=== PATIENT | female | born 1935 | race Caucasian/White ===

== ENCOUNTER 2019-02-04 18:08 | Inpatient (IN) | payer MEDICARE ==
[~2019-02-04] VITALS: Ht 147.3 cm; Wt 51.7 kg
--- OUTSIDE RECORDS SUMMARY | 2019-02-04 18:12 | XMS REPORT | Clinical Summary ---
Author Author [facility] Organization [facility] Address Unknown Phone Unavailable Care Team Providers Care Office Automation Technician Name Role Phone Checo Goldenpardeep PCP Allergies Comments Active Allergy Reactions Severity Noted Date Lactose 01/10/2009 Methocarbamol 01/10/2009 Medications End Date Status Medication Sig Dispensed Refills Start Date Active gabapentin (NEURONTIN) Chew 100 mg 0 100 MG capsule by mouth 3 (three) times daily. Active aspirin 81 MG EC tablet Take 81 mg by 0 mouth daily. Active ibandronate (BONIVA) 150 Take 150 mg 0 mg tablet by mouth every 30 (thirty) days. Take in AM with glass of water prior to food, don't lie down for 30 minutes. Active ferrous sulfate 325 (65 Take 325 mg 0 FE) MG tablet by mouth daily. Active brimonidine (ALPHAGAN P) Place 0.1 0 0.1 % Drop drops into both eyes 2 (two) times daily. Active cyanocobalamin (VITAMIN Take 100 mcg 0 B-12) 1000 MCG tablet by mouth daily. Active multivitamin Take 1 tablet 0 (MULTIVITAMIN) per tablet by mouth daily. Active ascorbic acid (VITAMIN C) Take 1,000 mg 0 1000 MG tablet by mouth daily. Active montelukast (SINGULAIR) Take 10 mg by 0 10 mg tablet mouth nightly. Active bimatoprost (LUMIGAN) Place 1 drop 0 0.03 % ophthalmic drops into the left eye nightly. Active simethicone (MYLICON) 125 Take 125 mg 0 MG chewable tablet by mouth every 6 (six) hours as needed. Active guaiFENesin (MUCINEX) 600 Take 600 mg 0 mg 12 hr tablet by mouth daily. Active fluticasone (FLONASE) 50 1 spray by 0 mcg/actuation nasal Nasal route sprayIndications: Hx of daily. artificial heart valve replacement, HTN (hypertension), Hyperlipemia, CHF (congestive heart failure) (HCC), Asthma, Cardiac dysrhythmia, Acquired hypothyroidism, SOB (shortness of breath) Active penicillin v potassium Take 1 tablet 4 tablet 4 (VEETID) 500 MG tablet (500 mg 5 total) by mouth as needed for up to 2 doses 3 tabs one hrs prior to the procedure and 1 tab 3 hrs after.. Active ezetimibe (ZETIA) 10 mg Take 10 mg by 0 tablet mouth daily. Active simvastatin (ZOCOR) 20 MG Take 20 mg by 0 tablet mouth nightly. Active furosemide (LASIX) 20 MG Take 1 tablet 180 tablet 3 tablet (20 mg total) 7 by mouth 2 (two) times daily Take with 40 mg in am and pm. . Active pantoprazole (PROTONIX) TAKE 1 TABLET 90 tablet 3 40 MG tablet BY MOUTH 8 DAILY Active potassium chloride SA Take 1 tablet 360 tablet 5 (K-DUR,KLOR-CON) 20 MEQ (20 mEq 8 tablet total) by mouth 4 (four) times daily. Active levothyroxine (SYNTHROID, Take 1 tablet 90 tablet 5 LEVOTHROID) 25 MCG tablet (25 mcg 8 total) by mouth daily. 10/28/2019 Active furosemide (LASIX) 40 MG Take 1 tablet 180 tablet 3 tablet (40 mg total) 8 by mouth 2 (two) times daily Take 60 mg in am and 40 mg noon.. Active metoprolol (TOPROL-XL) 25 Take 1 tablet 180 tablet 3 MG 24 hr tablet (25 mg total) 8 by mouth 2 (two) times daily. 10/27/2018 Discontinued desloratadine (CLARINEX) Take 5 mg by 0 5 mg tablet mouth daily. 10/27/2018 Discontinued ezetimibe-simvastatin Take 1 tablet 0 (VYTORIN) 10-20 mg per by mouth tablet nightly. 02/17/2018 Discontinued pantoprazole (PROTONIX) Take 1 tablet 90 tablet 5 40 MG tablet by mouth 7 daily 05/21/2018 Discontinued potassium chloride SA Take 1 tablet 360 tablet 5 (K-DUR,KLOR-CON) 20 MEQ by mouth 4 7 tablet times daily 08/05/2018 Discontinued levothyroxine (SYNTHROID, Take 1 tablet 90 tablet 5 LEVOTHROID) 25 MCG tablet by mouth 7 daily 10/27/2018 Discontinued metoprolol (TOPROL-XL) 25 Take 1 tablet 180 tablet 3 MG 24 hr tablet (25 mg total) 8 by mouth 2 (two) times daily. 10/27/2018 Discontinued furosemide (LASIX) 40 MG Take 1 tablet 180 tablet 3 tablet (40 mg total) 8 by mouth 2 (two) times daily Take 60 mg in am and 40 mg noon.. Active Problems Problem Noted Date Other hyperlipidemia 12/25/2017 Supraventricular tachycardia 08/01/2017 Essential hypertension with goal blood pressure less than 140/90 09/05/2016 Hx of artificial heart valve replacement 03/05/2013 CHF (congestive heart failure) 03/05/2013 Asthma 03/05/2013 Cardiac dysrhythmia 03/05/2013 Acquired hypothyroidism 03/05/2013 Disease of tricuspid valve 03/05/2013 Osteoporosis 03/05/2013 Pleural effusion, right 03/05/2013 GERD (gastroesophageal reflux disease) 03/05/2013 Encounters Care Team Description Date Type Specialty Cyrus Berman MD Hx of artificial heart valve replacement (Primary Dx); Essential hypertension with goal blood pressure less than 140/90; Supraventricular tachycardia (HCC); Other hyperlipidemia 10/27/2018 Office Visit Cardiology 10/27/2018 Orders Only General Internal Medicine Cyrus Berman MD 10/27/2018 Refill Cardiology Cyrus Berman MD 08/05/2018 Refill Cardiology Cyrus Berman MD Disease of tricuspid valve (Primary Dx); Essential hypertension with goal blood pressure less than 140/90; Supraventricular tachycardia (HCC); Other hyperlipidemia 05/29/2018 Office Visit Cardiology 05/29/2018 Orders Only General Internal Medicine Cyrus Berman MD 05/21/2018 Refill Cardiology Cyrus Berman MD 02/17/2018 Refill Cardiology after 02/03/2018 Family History Relation Name Status Comments Father Mother Social History Date Tobacco Use Types Packs/Day Years Used Never Smoker Smokeless Tobacco: Never Used Alcohol Use Drinks/Week oz/Week Comments No Sex Assigned at Date Recorded Not on file Industry Job Start Date Occupation Not on file Not on file Not on file Travel End Travel History Travel Start No recent travel history available. Last Filed Vital Signs Time Taken Vital Sign Reading 10/27/2018 8:21 AM [employer] Blood Pressure 149/72 10/27/2018 8:11 AM [employer] Pulse 66 10/27/2018 8:11 AM [employer] Temperature 35.9 C (96.6 F) 10/27/2018 8:11 AM [employer] Respiratory Rate 18 10/27/2018 8:11 AM [employer] Oxygen Saturation 100% - Inhaled Oxygen - Concentration 10/27/2018 8:11 AM [employer] Weight 54.4 kg (120 lb) 10/27/2018 8:11 AM [employer] Height 147.3 cm (4' 10") 10/27/2018 8:11 AM [employer] Body Mass Index 25.08 Plan of Treatment Care Team Description Date Type Specialty Cyrus Berman MD [address] [facility] [address] [place], [place] [id number] 03/02/2019 Office Visit Cardiology Health Maintenance Due Date Last Done Comments INFLUENZA VACCINE 08/24/2018 Procedures Comments Procedure Name Priority Date/Time Associated Diagnosis ECG 12-LEAD Routine 10/27/2018 9:15 AM [employer] Procedure Note - Interface, External Ris In - 10/27/2018 10:23 AM [employer] Ventricula r Rate 67 BPM Atrial Rate 67 BPM P-R Interval 134 ms QRS Duration 80 ms Q-T Interval 442 ms QTC Calculatio n(Bazett) 467 ms P Crawford 29 degrees R Crawford 21 degrees T Crawford 61 degrees Sinus rhythm with marked sinus arrhythmia Otherwise normal ECG When compared with ECG of 8 08:03, No significan t change was found ECG 12-LEAD Routine 10/27/2018 Essential hypertension 9:15 AM [employer] with goal blood pressure less than 140/90 Supraventricular tachycardia (HCC) CBC W/PLT COUNT & AUTO Routine 10/27/2018 Supraventricular DIFFERENTIAL 8:16 AM [employer] tachycardia (HCC) B-TYPE NATRIURETIC FACTOR Routine 10/27/2018 Essential hypertension (BNP) 8:16 AM [employer] with goal blood pressure less than 140/90 Supraventricular tachycardia (HCC) TSH Routine 10/27/2018 Essential hypertension 8:16 AM [employer] with goal blood pressure less than 140/90 Supraventricular tachycardia (HCC) HEPATIC FUNCTION PANEL Routine 10/27/2018 Essential hypertension 8:16 AM [employer] with goal blood pressure less than 140/90 Supraventricular tachycardia (HCC) Other hyperlipidemia LIPID PANEL Routine 10/27/2018 Essential hypertension 8:16 AM [employer] with goal blood pressure less than 140/90 Supraventricular tachycardia (HCC) Other hyperlipidemia CBC W/PLT COUNT & AUTO Routine 10/27/2018 Supraventricular DIFFERENTIAL 8:16 AM [employer] tachycardia (HCC) BASIC METABOLIC PANEL (7) Routine 10/27/2018 Other hyperlipidemia 8:16 AM [employer] CBC W/PLT COUNT & AUTO Routine 05/29/2018 Disease of tricuspid DIFFERENTIAL 8:04 AM CDT valve Essential hypertension with goal blood pressure less than 140/90 Supraventricular tachycardia (HCC) Other hyperlipidemia B-TYPE NATRIURETIC FACTOR STAT 05/29/2018 Disease of tricuspid (BNP) 8:04 AM CDT valve Essential hypertension with goal blood pressure less than 140/90 Supraventricular tachycardia (HCC) Other hyperlipidemia TSH Routine 05/29/2018 Disease of tricuspid 8:04 AM CDT valve Essential hypertension with goal blood pressure less than 140/90 Supraventricular tachycardia (HCC) Other hyperlipidemia HEPATIC FUNCTION PANEL Routine 05/29/2018 Disease of tricuspid 8:04 AM CDT valve Essential hypertension with goal blood pressure less than 140/90 Supraventricular tachycardia (HCC) Other hyperlipidemia LIPID PANEL Routine 05/29/2018 Disease of tricuspid 8:04 AM CDT valve Essential hypertension with goal blood pressure less than 140/90 Supraventricular tachycardia (HCC) Other hyperlipidemia COMPREHENSIVE METABOLIC Routine 05/29/2018 Disease of tricuspid PANEL 8:04 AM CDT valve Essential hypertension with goal blood pressure less than 140/90 Supraventricular tachycardia (HCC) Other hyperlipidemia CBC W/PLT COUNT & AUTO Routine 05/29/2018 Disease of tricuspid DIFFERENTIAL 8:04 AM CDT valve Essential hypertension with goal blood pressure less than 140/90 Supraventricular tachycardia (HCC) Other hyperlipidemia BASIC METABOLIC PANEL (7) Routine 05/29/2018 Disease of tricuspid 8:04 AM CDT valve Essential hypertension with goal blood pressure less than 140/90 Supraventricular tachycardia (HCC) Other hyperlipidemia ECG 12-LEAD Routine 05/29/2018 8:03 AM CDT ECG 12-LEAD Routine 05/29/2018 8:03 AM CDT Procedure Note - Interface, External Ris In - 05/29/2018 11:07 AM CDT Ventricula r Rate 57 BPM Atrial Rate 57 BPM P-R Interval 166 ms QRS Duration 80 ms Q-T Interval 450 ms QTC Calculatio n(Bazett) 438 ms P Crawford 6 degrees R Crawford 18 degrees T Crawford 45 degrees Sinus bradycardi a Otherwise normal ECG When compared with ECG of 8 08:55, No significan t change was found after 02/03/2018 Results * ECG 12 lead (10/27/2018 9:15 AM [employer]) Only the most recent of 2 results within the time period is included. Narrative Performed At Ventricular Rate 67 BPM [facility] Atrial Rate 67 BPM P-R Interval 134 ms QRS Duration 80 ms Q-T Interval 442 ms QTC Calculation(Bazett) 467 ms P Crawford 29 degrees R Crawford 21 degrees T Crawford 61 degrees Sinus rhythm Atrial premature beats Nonspecific ST and T wave abnormality Otherwise normal ECG When compared with ECG of 29-MAY-2018 08:03, No significant change was found Confirmed by MD BERMAN JAMES T ([id number]) on 10/28/2018 2:00:04 PM Procedure Note Interface, External Ris In - 10/28/2018 2:00 PM [employer] Ventricular Rate 67 BPM Atrial Rate 67 BPM P-R Interval 134 ms QRS Duration 80 ms Q-T Interval 442 ms QTC Calculation(Bazett) 467 ms P Crawford 29 degrees R Crawford 21 degrees T Crawford 61 degrees Sinus rhythm Atrial premature beats Nonspecific ST and T wave abnormality Otherwise normal ECG When compared with ECG of 29-MAY-2018 08:03, No significant change was found Confirmed by MD BERMAN JAMES T ([id number]) on 10/28/2018 2:00:04 PM Performing Organization Address City/State/Zipcode Phone Number [facility] * CBC with platelet count + automated diff (10/27/2018 8:16 AM [employer]) Only the most recent of 2 results within the time period is included. WBC 5.3 3.5 - 10.5 K/L [facility] RBC 3.69 (L) 3.93 - 5.22 M/L [facility] Hemoglobin 11.9 11.2 - 15.7 GM/DL [facility] Hematocrit 37.2 34.1 - 44.9 % [facility] MCV 100.8 (H) 79.4 - 94.8 fL [facility] MCH 32.2 25.6 - 32.2 pg [facility] MCHC 32.0 (L) 32.2 - 35.5 GM/DL [facility] RDW 12.1 11.7 - 14.4 % [facility] Platelets 308 150 - 450 K/CU MM [facility] MPV 9.0 (L) 9.4 - 12.3 fL [facility] nRBC 0 0 - 0 /100 WBC [facility] % Neutros 68 % [facility] % Lymphs 19 % [facility] % Monos 9 % [facility] % Eos 3 % [facility] % Baso 1 % [facility] # Neutros 3.60 1.56 - 6.13 K/L [facility] # Lymphs 0.98 (L) 1.18 - 3.74 K/L [facility] # Monos 0.47 (H) 0.24 - 0.36 K/L [facility] # Eos 0.18 0.04 - 0.36 K/L [facility] # Baso 0.05 0.01 - 0.08 K/L [facility] Immature 0 0 - 1 % [facility] Granulocytes-Relative [facility] Specimen Blood Performing Organization Address City/[facility]/[place]code [place] [address] [phone] * TSH (10/27/2018 8:16 AM [employer] FINISH[employer]) Only the most recent of 2 results within the time period is included. TSH 3.16 0.35 - 4.94 uIU/mL [facility] Specimen Blood Performing Organization Address City/[facility] Phone Number [place] [phone] * B-type Natriuretic Factor (BNP) (10/27/2018 8:16 AM [employer]) Only the most recent of 2 results within the time period is included. BNP 364 (H) 0 - 100 pg/mL [facility] Specimen Blood Performing Organization Address City/[facility] Phone Number [address] * Liver Function Panel (10/27/2018 8:16 AM [employer] FIN[employer]) Only the most recent of 2 results within the time period is included. Protein, Total 7.0 6.0 - 8.3 gm/dL [facility] Albumin 4.1 3.5 - 5.0 g/dL [facility] Total Bilirubin 0.7 0.2 - 1.2 mg/dL [facility] Bilirubin, Direct 0.4 0.1 - 0.5 mg/dL [facility] Alkaline Phosphatase 185 (H) 40 - 150 U/L [facility] AST 29 5 - 34 U/L [facility] ALT 27 6 - 55 U/L [facility] Specimen Blood Performing Organization Address City/[facility] Phone Number [facility] [address] [place] [address] [facility] * Lipid Panel (10/27/2018 8:16 AM [employer] FIN[employer]) Only the most recent of 2 results within the time period is included. Triglycerides 83 mg/dL [facility] Cholesterol 155 mg/dL [facility] HDL 62 mg/dL [facility] LDL Calculated 76 mg/dL [facility] Specimen Blood Narrative Performed At Triglyceride Reference Range: [facility] Low Risk <150 [facility] [id number] High Risk 200-499 Very High Risk>=500 Cholesterol Reference Range: Low Risk <200 [id number] High Risk>240 HDL Cholesterol Reference Range: Low Risk >=60 High Risk <40 LDL Cholesterol Reference Range: Optimal<100 Near [id number] Very High >=190 Performing Organization Address City/[facility] Phone Number [facility] [address] [place] [address] [facility] * Basic Metabolic Panel (10/27/2018 8:16 AM H[employer] FINISH[employer]) Only the most recent of 2 results within the time period is included. Sodium 138 136 - 145 meq/L [facility] Potassium 3.6 3.5 - 5.1 meq/L [facility] Chloride 100 98 - 107 meq/L [facility] CO2 32 (H) 22 - 29 meq/L [facility] BUN 15 7 - 21 mg/dL [facility] Creatinine 0.79 0.57 - 1.25 mg/dL [facility] Glucose 91 70 - 105 mg/dL [facility] Calcium 9.4 8.4 - 10.2 mg/dL [facility] EGFR 70Comment: ESTIMATED GFR IS mL/min/1.73 sq m [facility] NOT ACCURATE CREATININE [facility] CLEARANCE IN PREDICTING GLOMERULAR FILTRATION RATE. ESTIMATED GFR IS NOT APPLICABLE FOR DIALYSIS PATIENTS. Specimen Blood Performing Organization Address City/State/Zipcode Phone Number [facility] [address] [place] [address] [facility] * Comprehensive Metabolic Panel (05/29/2018 8:04 AM CDT) Protein, Total 6.5 6.0 - 8.3 gm/dL [facility] Albumin 3.9 3.5 - 5.0 g/dL [facility] Alkaline Phosphatase 77 40 - 150 U/L [facility] Total Bilirubin 0.8 0.2 - 1.2 mg/dL [facility] Sodium 136 136 - 145 meq/L [facility] Potassium 4.1 3.5 - 5.1 meq/L [facility] Chloride 99 98 - 107 meq/L [facility] CO2 32 (H) 22 - 29 meq/L [facility] BUN 15 7 - 21 mg/dL [facility] Creatinine 0.90 0.57 - 1.25 mg/dL [facility] Glucose 92 70 - 105 mg/dL [facility] Calcium 9.4 8.4 - 10.2 mg/dL [facility] AST 23 5 - 34 U/L [facility] ALT 15 6 - 55 U/L [facility] EGFR 60Comment: ESTIMATED GFR IS mL/min/1.73 sq m [facility] NOT ACCURATE CREATININE [facility] CLEARANCE IN PREDICTING GLOMERULAR FILTRATION RATE. ESTIMATED GFR IS NOT APPLICABLE FOR DIALYSIS PATIENTS. Specimen Blood Performing Organization Address City/State/Zipcode Phone Number [facility] [address] [place] [address] [facility] after 02/03/2018 Insurance Payer Benefit Subscriber ID Type Phone Address Plan / Group MEDICARE MEDICARE A xxxxxxxxxxx Medicare B MCR SUPPLEMENT/INDIVIDUAL AARP/UNITE xxxxxxxxxxx [facility]
--- OUTSIDE RECORDS SUMMARY | 2019-02-04 18:12 | XMS REPORT ---
Author Author [facility] Address Unknown Phone Unavailable Care Team Providers Care Reading Professor Name Role Phone Mark BERMAN Unavailable Unavailable Problems This patient has no known problems. Allergies, Adverse Reactions, Alerts This patient has no known allergies or adverse reactions. Medications This patient has no known medications. Results Test Description Test Time Test Comments Text Results Atomic Results Result Comments TSH 2018-10-27 09:18:00 THYROID STIMULATING HORMONE (BEAKER) (test zzdj=056) 3.16 uIU/mL 0.35-4.94 B-TYPE NATRIURETIC FACTOR (BNP)2018-10-27 08:49:00* Test Item Value Reference Range Comments B-TYPE NATRIURETIC PEPTIDE (BEAKER) (test tgqp=501) 364 pg/mL 0-100 LIPID [id number] 08:42:00* Test Item Value Reference Range Comments TRIGLYCERIDES (BEAKER) (test cymq=004) 83 mg/dL CHOLESTEROL (BEAKER) (test kljg=380) 155 mg/dL HDL CHOLESTEROL (BEAKER) (test msir=164) 62 mg/dL LDL CHOLESTEROL CALCULATED (BEAKER) (test aluf=729) 76 mg/dL Triglyceride Reference Range: Low Risk <150 Borderline 150-199 High Risk 200-499 Very High Risk >=500Cholesterol Reference Range: Low Risk <200 Borderline 200-239 High Risk >240HDL Cholesterol Reference Range: Low Risk >=60 High Risk <40LDL Cholesterol Reference Range: Optimal <100 Near Optimal 100-129 Borderline 130-159 High 160-189 Very High >=190 BASIC METABOLIC [id number] 08:42:00* Test Item Value Reference Range Comments SODIUM (BEAKER) (test ctzy=357) 138 meq/L 136-145 POTASSIUM (BEAKER) (test guhu=859) 3.6 meq/L 3.5-5.1 CHLORIDE (BEAKER) (test gyjr=959) 100 meq/L 98-107 CO2 (BEAKER) (test yjri=350) 32 meq/L 22-29 BLOOD UREA NITROGEN (BEAKER) (test oohj=789) 15 mg/dL 7-21 CREATININE (BEAKER) (test vwid=620) 0.79 mg/dL 0.57-1.25 GLUCOSE RANDOM (BEAKER) (test xeex=178) 91 mg/dL 70-105 CALCIUM (BEAKER) (test bgfr=585) 9.4 mg/dL 8.4-10.2 EGFR (BEAKER) (test xvsm=4943) 70 mL/min/1.73 sq m ESTIMATED GFR IS NOT ACCURATE CREATININE CLEARANCE IN PREDICTING GLOMERULAR FILTRATION RATE. ESTIMATED GFR IS NOT APPLICABLE FOR DIALYSIS PATIENTS. HEPATIC FUNCTION [id number] 08:42:00* Test Item Value Reference Range Comments TOTAL PROTEIN (BEAKER) (test dkwf=023) 7.0 gm/dL 6.0-8.3 ALBUMIN (BEAKER) (test ezpz=6946) 4.1 g/dL 3.5-5.0 BILIRUBIN TOTAL (BEAKER) (test runa=390) 0.7 mg/dL 0.2-1.2 BILIRUBIN DIRECT (BEAKER) (test whjs=882) 0.4 mg/dL 0.1-0.5 ALKALINE PHOSPHATASE (BEAKER) (test dwap=657) 185 U/L 40-150 AST (SGOT) (BEAKER) (test nvcz=947) 29 U/L 5-34 ALT (SGPT) (BEAKER) (test igbd=663) 27 U/L 6-55 CBC W/PLT COUNT & AUTO [id number] 08:20:00* Test Item Value Reference Range Comments WHITE BLOOD CELL COUNT (BEAKER) (test aufw=156) 5.3 K/ L 3.5-10.5 RED BLOOD CELL COUNT (BEAKER) (test itxd=424) 3.69 M/ L 3.93-5.22 HEMOGLOBIN (BEAKER) (test xybk=334) 11.9 GM/DL 11.2-15.7 HEMATOCRIT (BEAKER) (test rhqi=507) 37.2 % 34.1-44.9 MEAN CORPUSCULAR VOLUME (BEAKER) (test nyho=675) 100.8 fL 79.4-94.8 MEAN CORPUSCULAR HEMOGLOBIN (BEAKER) (test yhqf=175) 32.2 pg 25.6-32.2 MEAN CORPUSCULAR HEMOGLOBIN CONC (BEAKER) (test kaka=444) 32.0 GM/DL 32.2-35.5 RED CELL DISTRIBUTION WIDTH (BEAKER) (test pimy=438) 12.1 % 11.7-14.4 PLATELET COUNT (BEAKER) (test valq=090) 308 K/CU MM 150-450 MEAN PLATELET VOLUME (BEAKER) (test yntj=428) 9.0 fL 9.4-12.3 NUCLEATED RED BLOOD CELLS (BEAKER) (test qbov=161) 0 /100 WBC 0-0 NEUTROPHILS RELATIVE PERCENT (BEAKER) (test tcdk=242) 68 % LYMPHOCYTES RELATIVE PERCENT (BEAKER) (test cbmn=110) 19 % MONOCYTES RELATIVE PERCENT (BEAKER) (test hhet=934) 9 % EOSINOPHILS RELATIVE PERCENT (BEAKER) (test vxhe=919) 3 % BASOPHILS RELATIVE PERCENT (BEAKER) (test uvtl=927) 1 % NEUTROPHILS ABSOLUTE COUNT (BEAKER) (test rpld=580) 3.60 K/ L 1.56-6.13 LYMPHOCYTES ABSOLUTE COUNT (BEAKER) (test jzfa=722) 0.98 K/ L 1.18-3.74 MONOCYTES ABSOLUTE COUNT (BEAKER) (test twif=598) 0.47 K/ L 0.24-0.36 EOSINOPHILS ABSOLUTE COUNT (BEAKER) (test xjas=683) 0.18 K/ L 0.04-0.36 BASOPHILS ABSOLUTE COUNT (BEAKER) (test tlcp=798) 0.05 K/ L 0.01-0.08 IMMATURE GRANULOCYTES-RELATIVE PERCENT (BEAKER) (test qsyh=7032) 0 % 0-1 LIPID [id number] 09:16:00* Test Item Value Reference Range Comments TRIGLYCERIDES (BEAKER) (test lagv=082) 90 mg/dL CHOLESTEROL (BEAKER) (test klla=585) 171 mg/dL HDL CHOLESTEROL (BEAKER) (test ckfs=530) 62 mg/dL LDL CHOLESTEROL CALCULATED (BEAKER) (test jimr=495) 91 mg/dL Triglyceride Reference Range: Low Risk <150 Borderline 150-199 High Risk 200-499 Very High Risk >=500Cholesterol Reference Range: Low Risk <200 Borderline 200-239 High Risk >240HDL Cholesterol Reference Range: Low Risk >=60 High Risk <40LDL Cholesterol Reference Range: Optimal <100 Near Optimal 100-129 Borderline 130-159 High 160-189 Very High >=190 TSH 2018-05-29 08:50:00* Test Item Value Reference Range Comments THYROID STIMULATING HORMONE (BEAKER) (test cobt=470) 2.62 uIU/mL 0.35-4.94 B-TYPE NATRIURETIC FACTOR (BNP)2018-05-29 08:36:00* Test Item Value Reference Range Comments B-TYPE NATRIURETIC PEPTIDE (BEAKER) (test hgah=828) 327 pg/mL 0-100 BASIC METABOLIC [id number] 08:30:00* Test Item Value Reference Range Comments SODIUM (BEAKER) (test bvfb=136) 136 meq/L 136-145 POTASSIUM (BEAKER) (test kwwx=566) 4.1 meq/L 3.5-5.1 CHLORIDE (BEAKER) (test mhix=335) 99 meq/L 98-107 CO2 (BEAKER) (test dwmc=033) 32 meq/L 22-29 BLOOD UREA NITROGEN (BEAKER) (test rrkw=705) 15 mg/dL 7-21 CREATININE (BEAKER) (test gvrx=875) 0.90 mg/dL 0.57-1.25 GLUCOSE RANDOM (BEAKER) (test easn=412) 92 mg/dL 70-105 CALCIUM (BEAKER) (test nacj=509) 9.4 mg/dL 8.4-10.2 EGFR (BEAKER) (test uriq=8896) 60 mL/min/1.73 sq m ESTIMATED GFR IS NOT ACCURATE CREATININE CLEARANCE IN PREDICTING GLOMERULAR FILTRATION RATE. ESTIMATED GFR IS NOT APPLICABLE FOR DIALYSIS PATIENTS. HEPATIC FUNCTION [id number] 08:30:00* Test Item Value Reference Range Comments TOTAL PROTEIN (BEAKER) (test wzir=485) 6.5 gm/dL 6.0-8.3 ALBUMIN (BEAKER) (test mnvb=6667) 3.9 g/dL 3.5-5.0 BILIRUBIN TOTAL (BEAKER) (test xzpp=549) 0.8 mg/dL 0.2-1.2 BILIRUBIN DIRECT (BEAKER) (test mngz=256) 0.3 mg/dL 0.1-0.5 ALKALINE PHOSPHATASE (BEAKER) (test pbkp=190) 77 U/L 40-150 AST (SGOT) (BEAKER) (test xakr=830) 23 U/L 5-34 ALT (SGPT) (BEAKER) (test zxlp=815) 15 U/L 6-55 COMPREHENSIVE METABOLIC [id number] 08:30:00* Test Item Value Reference Range Comments TOTAL PROTEIN (BEAKER) (test akvi=034) 6.5 gm/dL 6.0-8.3 ALBUMIN (BEAKER) (test vcfi=1775) 3.9 g/dL 3.5-5.0 ALKALINE PHOSPHATASE (BEAKER) (test urba=625) 77 U/L 40-150 BILIRUBIN TOTAL (BEAKER) (test bbyx=253) 0.8 mg/dL 0.2-1.2 SODIUM (BEAKER) (test ofvq=232) 136 meq/L 136-145 POTASSIUM (BEAKER) (test okxs=702) 4.1 meq/L 3.5-5.1 CHLORIDE (BEAKER) (test utxh=067) 99 meq/L 98-107 CO2 (BEAKER) (test voca=563) 32 meq/L 22-29 BLOOD UREA NITROGEN (BEAKER) (test zwhc=291) 15 mg/dL 7-21 CREATININE (BEAKER) (test mouf=907) 0.90 mg/dL 0.57-1.25 GLUCOSE RANDOM (BEAKER) (test pbwq=590) 92 mg/dL 70-105 CALCIUM (BEAKER) (test hoxc=237) 9.4 mg/dL 8.4-10.2 AST (SGOT) (BEAKER) (test hisr=710) 23 U/L 5-34 ALT (SGPT) (BEAKER) (test urrw=745) 15 U/L 6-55 EGFR (BEAKER) (test firr=5716) 60 mL/min/1.73 sq m ESTIMATED GFR IS NOT ACCURATE CREATININE CLEARANCE IN PREDICTING GLOMERULAR FILTRATION RATE. ESTIMATED GFR IS NOT APPLICABLE FOR DIALYSIS PATIENTS. CBC W/PLT COUNT & AUTO [id number] 08:15:00* Test Item Value Reference Range Comments WHITE BLOOD CELL COUNT (BEAKER) (test uqol=323) 4.1 K/ L 3.5-10.5 RED BLOOD CELL COUNT (BEAKER) (test ckdy=492) 3.56 M/ L 3.93-5.22 HEMOGLOBIN (BEAKER) (test gomu=403) 11.7 GM/DL 11.2-15.7 HEMATOCRIT (BEAKER) (test wvfp=964) 35.7 % 34.1-44.9 MEAN CORPUSCULAR VOLUME (BEAKER) (test rtih=201) 100.3 fL 79.4-94.8 MEAN CORPUSCULAR HEMOGLOBIN (BEAKER) (test ktzs=916) 32.9 pg 25.6-32.2 MEAN CORPUSCULAR HEMOGLOBIN CONC (BEAKER) (test mqom=431) 32.8 GM/DL 32.2-35.5 RED CELL DISTRIBUTION WIDTH (BEAKER) (test qgqh=142) 12.7 % 11.7-14.4 PLATELET COUNT (BEAKER) (test zzfk=634) 235 K/CU MM 150-450 MEAN PLATELET VOLUME (BEAKER) (test opzo=907) 9.4 fL 9.4-12.3 NUCLEATED RED BLOOD CELLS (BEAKER) (test snqo=123) 0 /100 WBC 0-0 NEUTROPHILS RELATIVE PERCENT (BEAKER) (test bilb=437) 64 % LYMPHOCYTES RELATIVE PERCENT (BEAKER) (test ehxx=393) 22 % MONOCYTES RELATIVE PERCENT (BEAKER) (test puql=856) 10 % EOSINOPHILS RELATIVE PERCENT (BEAKER) (test cuje=807) 3 % BASOPHILS RELATIVE PERCENT (BEAKER) (test oruu=722) 1 % NEUTROPHILS ABSOLUTE COUNT (BEAKER) (test tues=983) 2.63 K/ L 1.56-6.13 LYMPHOCYTES ABSOLUTE COUNT (BEAKER) (test vzkr=344) 0.88 K/ L 1.18-3.74 MONOCYTES ABSOLUTE COUNT (BEAKER) (test axjn=161) 0.39 K/ L 0.24-0.36 EOSINOPHILS ABSOLUTE COUNT (BEAKER) (test ucja=483) 0.13 K/ L 0.04-0.36 BASOPHILS ABSOLUTE COUNT (BEAKER) (test hwhg=635) 0.04 K/ L 0.01-0.08 IMMATURE GRANULOCYTES-RELATIVE PERCENT (BEAKER) (test rjly=7917) 0 % 0-1 [id number] 09:02:00* Test Item Value Reference Range Comments THYROID STIMULATING HORMONE (BEAKER) (test gxxi=714) 2.85 uIU/mL 0.35-4.94 RAD, CHEST, 2 [id number] 08:35:00Reason for Exam:->CADFINAL REPORT Chest two views 12/31/2017 8:34 AM CLINICAL INDICATION: CAD COMPARISON: 09/09/2016 IMPRESSION: There has been no significant interval change when compared to the previous examination. There is unchanged pleural parenchymal opacity in the right lung and hemithorax, suggesting a combination of small volume pleural fluid and atelectasis. There is a trace left pleural effusion, with adjacent basilar atelectasis or scarring. Cardiomediastinal cont ours are within normal limits. The central pulmonary vasculature is not engorged . Sternotomy wires remain midline. There is kyphoscoliosis in the thoracolumbar spine. Signed: Griffin Mc Verified Date/Time: 12/31/2017 08:35:51 Reading Location: [facility] Radiology Reading Room D [id number] 08:34:00 * Test Item Value Reference Range Comments TRIGLYCERIDES (BEAKER) (test qubi=263) 95 mg/dL CHOLESTEROL (BEAKER) (test rjhw=894) 162 mg/dL HDL CHOLESTEROL (BEAKER) (test kebc=393) 64 mg/dL LDL CHOLESTEROL CALCULATED (BEAKER) (test bqfv=994) 79 mg/dL Triglyceride Reference Range: Low Risk <150 Borderline 150-199 High Risk 200-499 Very High Risk >=500Cholesterol Reference Range: Low Risk <200 Borderline 200-239 High Risk >240HDL Cholesterol Reference Range: Low Risk >=60 High Risk <40LDL Cholesterol Reference Range: Optimal <100 Near Optimal 100-129 Borderline 130-159 High 160-189 Very High >=190 BASIC METABOLIC [id number] 08:34:00* Test Item Value Reference Range Comments SODIUM (BEAKER) (test rtaw=756) 138 meq/L 136-145 POTASSIUM (BEAKER) (test yvsa=482) 3.6 meq/L 3.5-5.1 CHLORIDE (BEAKER) (test zegj=157) 99 meq/L 98-107 CO2 (BEAKER) (test ysmq=757) 31 meq/L 22-29 BLOOD UREA NITROGEN (BEAKER) (test bocm=756) 15 mg/dL 7-21 CREATININE (BEAKER) (test mfzr=798) 0.84 mg/dL 0.57-1.25 GLUCOSE RANDOM (BEAKER) (test brkg=015) 87 mg/dL 70-105 CALCIUM (BEAKER) (test xssx=451) 9.3 mg/dL 8.4-10.2 EGFR (BEAKER) (test elhp=6427) 65 mL/min/1.73 sq m ESTIMATED GFR IS NOT ACCURATE CREATININE CLEARANCE IN PREDICTING GLOMERULAR FILTRATION RATE. ESTIMATED GFR IS NOT APPLICABLE FOR DIALYSIS PATIENTS. HEPATIC FUNCTION [id number] 08:34:00* Test Item Value Reference Range Comments TOTAL PROTEIN (BEAKER) (test oxyn=004) 6.8 gm/dL 6.0-8.3 ALBUMIN (BEAKER) (test avtp=5263) 3.9 g/dL 3.5-5.0 BILIRUBIN TOTAL (BEAKER) (test kktn=828) 0.8 mg/dL 0.2-1.2 BILIRUBIN DIRECT (BEAKER) (test emfg=797) 0.4 mg/dL 0.1-0.5 ALKALINE PHOSPHATASE (BEAKER) (test bvuw=269) 75 U/L 40-150 AST (SGOT) (BEAKER) (test rhqz=104) 29 U/L 5-34 ALT (SGPT) (BEAKER) (test zuvw=558) 17 U/L 6-55 B-TYPE NATRIURETIC FACTOR (BNP)2017-12-31 08:30:00* Test Item Value Reference Range Comments B-TYPE NATRIURETIC PEPTIDE (BEAKER) (test mnka=045) 317 pg/mL 0-100 CBC W/PLT COUNT & AUTO [id number] 08:01:00* Test Item Value Reference Range Comments WHITE BLOOD CELL COUNT (BEAKER) (test wded=308) 5.3 K/ L 3.5-10.5 RED BLOOD CELL COUNT (BEAKER) (test sbmu=477) 3.58 M/ L 3.93-5.22 HEMOGLOBIN (BEAKER) (test kxxn=306) 11.8 GM/DL 11.2-15.7 HEMATOCRIT (BEAKER) (test xdye=094) 35.9 % 34.1-44.9 MEAN CORPUSCULAR VOLUME (BEAKER) (test awyi=926) 100.3 fL 79.4-94.8 MEAN CORPUSCULAR HEMOGLOBIN (BEAKER) (test ijhd=676) 33.0 pg 25.6-32.2 MEAN CORPUSCULAR HEMOGLOBIN CONC (BEAKER) (test zyqc=713) 32.9 GM/DL 32.2-35.5 RED CELL DISTRIBUTION WIDTH (BEAKER) (test cbmw=265) 12.4 % 11.7-14.4 PLATELET COUNT (BEAKER) (test lguw=037) 224 K/CU MM 150-450 MEAN PLATELET VOLUME (BEAKER) (test nefw=649) 9.3 fL 9.4-12.3 NUCLEATED RED BLOOD CELLS (BEAKER) (test sblw=287) 0 /100 WBC 0-0 NEUTROPHILS RELATIVE PERCENT (BEAKER) (test wuqc=611) 66 % LYMPHOCYTES RELATIVE PERCENT (BEAKER) (test mziz=872) 20 % MONOCYTES RELATIVE PERCENT (BEAKER) (test bjwj=086) 10 % EOSINOPHILS RELATIVE PERCENT (BEAKER) (test jlvh=144) 3 % BASOPHILS RELATIVE PERCENT (BEAKER) (test buny=003) 1 % NEUTROPHILS ABSOLUTE COUNT (BEAKER) (test xfor=412) 3.52 K/ L 1.56-6.13 LYMPHOCYTES ABSOLUTE COUNT (BEAKER) (test vlsl=543) 1.06 K/ L 1.18-3.74 MONOCYTES ABSOLUTE COUNT (BEAKER) (test diru=235) 0.52 K/ L 0.24-0.36 EOSINOPHILS ABSOLUTE COUNT (BEAKER) (test nnmk=554) 0.17 K/ L 0.04-0.36 BASOPHILS ABSOLUTE COUNT (BEAKER) (test kigi=553) 0.04 K/ L 0.01-0.08 IMMATURE GRANULOCYTES-RELATIVE PERCENT (BEAKER) (test qsta=2439) 0 % 0-1 [id number] 09:21:00* Test Item Value Reference Range Comments THYROID STIMULATING HORMONE (BEAKER) (test pkbt=470) 3.83 uIU/mL 0.35-4.94 B-TYPE NATRIURETIC FACTOR (BNP)2017-08-04 09:01:00* Test Item Value Reference Range Comments B-TYPE NATRIURETIC PEPTIDE (BEAKER) (test tvmk=313) 269 pg/mL 0-100 LIPID [id number] 08:55:00* Test Item Value Reference Range Comments TRIGLYCERIDES (BEAKER) (test uqwa=177) 95 mg/dL CHOLESTEROL (BEAKER) (test huul=021) 166 mg/dL HDL CHOLESTEROL (BEAKER) (test gntf=890) 62 mg/dL LDL CHOLESTEROL CALCULATED (BEAKER) (test wmro=836) 85 mg/dL Triglyceride Reference Range: Low Risk <150 Borderline 150-199 High Risk 200-499 Very High Risk >=500Cholesterol Reference Range: Low Risk <200 Borderline 200-239 High Risk >240HDL Cholesterol Reference Range: Low Risk >=60 High Risk <40LDL Cholesterol Reference Range: Optimal <100 Near Optimal 100-129 Borderline 130-159 High 160-189 Very High >=190 BASIC METABOLIC [id number] 08:55:00* Test Item Value Reference Range Comments SODIUM (BEAKER) (test hotl=185) 138 meq/L 136-145 POTASSIUM (BEAKER) (test tybt=532) 3.7 meq/L 3.5-5.1 CHLORIDE (BEAKER) (test powf=458) 100 meq/L 98-107 CO2 (BEAKER) (test zczm=795) 29 meq/L 22-29 BLOOD UREA NITROGEN (BEAKER) (test jsza=656) 18 mg/dL 7-21 CREATININE (BEAKER) (test guuz=775) 0.87 mg/dL 0.57-1.25 GLUCOSE RANDOM (BEAKER) (test eivy=515) 83 mg/dL 70-105 CALCIUM (BEAKER) (test jdbb=096) 9.3 mg/dL 8.4-10.2 EGFR (BEAKER) (test jcnc=5302) 62 mL/min/1.73 sq m ESTIMATED GFR IS NOT ACCURATE CREATININE CLEARANCE IN PREDICTING GLOMERULAR FILTRATION RATE. ESTIMATED GFR IS NOT APPLICABLE FOR DIALYSIS PATIENTS. HEPATIC FUNCTION [id number] 08:55:00* Test Item Value Reference Range Comments TOTAL PROTEIN (BEAKER) (test auoy=955) 6.7 gm/dL 6.0-8.3 ALBUMIN (BEAKER) (test lhyw=7610) 3.9 g/dL 3.5-5.0 BILIRUBIN TOTAL (BEAKER) (test eqys=202) 0.8 mg/dL 0.2-1.2 BILIRUBIN DIRECT (BEAKER) (test xxll=840) 0.3 mg/dL 0.1-0.5 ALKALINE PHOSPHATASE (BEAKER) (test ntaf=780) 81 U/L 40-150 AST (SGOT) (BEAKER) (test maks=734) 30 U/L 5-34 ALT (SGPT) (BEAKER) (test qqwd=365) 18 U/L 6-55 CBC W/PLT COUNT & AUTO [id number] 08:33:00* Test Item Value Reference Range Comments WHITE BLOOD CELL COUNT (BEAKER) (test uegp=891) 4.6 K/ L 3.5-10.5 RED BLOOD CELL COUNT (BEAKER) (test zzfo=754) 3.68 M/ L 3.93-5.22 HEMOGLOBIN (BEAKER) (test lslv=038) 12.0 GM/DL 11.2-15.7 HEMATOCRIT (BEAKER) (test jbjx=795) 36.9 % 34.1-44.9 MEAN CORPUSCULAR VOLUME (BEAKER) (test jksb=970) 100.3 fL 79.4-94.8 MEAN CORPUSCULAR HEMOGLOBIN (BEAKER) (test kpud=508) 32.6 pg 25.6-32.2 MEAN CORPUSCULAR HEMOGLOBIN CONC (BEAKER) (test litq=759) 32.5 GM/DL 32.2-35.5 RED CELL DISTRIBUTION WIDTH (BEAKER) (test jcqw=424) 12.1 % 11.7-14.4 PLATELET COUNT (BEAKER) (test goax=017) 255 K/CU MM 150-450 MEAN PLATELET VOLUME (BEAKER) (test lcny=775) 9.8 fL 9.4-12.3 NUCLEATED RED BLOOD CELLS (BEAKER) (test uaig=807) 0 /100 WBC 0-0 NEUTROPHILS RELATIVE PERCENT (BEAKER) (test iciw=624) 63 % LYMPHOCYTES RELATIVE PERCENT (BEAKER) (test pcou=931) 25 % MONOCYTES RELATIVE PERCENT (BEAKER) (test kvez=544) 8 % EOSINOPHILS RELATIVE PERCENT (BEAKER) (test ijli=172) 3 % BASOPHILS RELATIVE PERCENT (BEAKER) (test puyn=029) 1 % NEUTROPHILS ABSOLUTE COUNT (BEAKER) (test oehf=469) 2.93 K/ L 1.56-6.13 LYMPHOCYTES ABSOLUTE COUNT (BEAKER) (test puwe=318) 1.13 K/ L 1.18-3.74 MONOCYTES ABSOLUTE COUNT (BEAKER) (test zqjl=451) 0.36 K/ L 0.24-0.36 EOSINOPHILS ABSOLUTE COUNT (BEAKER) (test psap=334) 0.15 K/ L 0.04-0.36 BASOPHILS ABSOLUTE COUNT (BEAKER) (test hqqx=333) 0.04 K/ L 0.01-0.08 IMMATURE GRANULOCYTES-RELATIVE PERCENT (BEAKER) (test fxzp=7477) 0 % 0-1 [id number] 09:53:00* Test Item Value Reference Range Comments THYROID STIMULATING HORMONE (BEAKER) (test uxol=094) 2.99 uIU/mL 0.35-4.94 CBC W/PLT COUNT & AUTO [id number] 08:46:00* Test Item Value Reference Range Comments WHITE BLOOD CELL COUNT (BEAKER) (test pebs=577) 4.6 K/ L 4.0-10.0 RED BLOOD CELL COUNT (BEAKER) (test ipex=593) 3.79 M/ L 4.00-5.00 HEMOGLOBIN (BEAKER) (test gbix=476) 13.2 GM/DL 12.0-15.0 HEMATOCRIT (BEAKER) (test yfwy=475) 38.1 % 36.0-45.0 MEAN CORPUSCULAR VOLUME (BEAKER) (test mxsm=322) 101.0 fL 82.0-99.0 MEAN CORPUSCULAR HEMOGLOBIN (BEAKER) (test gzwh=841) 34.7 pg 27.0-33.0 MEAN CORPUSCULAR HEMOGLOBIN CONC (BEAKER) (test evat=650) 34.5 GM/DL 32.0-36.0 RED CELL DISTRIBUTION WIDTH (BEAKER) (test ppgg=112) 10.7 % 10.3-14.2 PLATELET COUNT (BEAKER) (test bpqn=111) 262 K/CU MM 150-430 MEAN PLATELET VOLUME (BEAKER) (test ijnz=684) 6.7 fL 6.5-10.5 NUCLEATED RED BLOOD CELLS (BEAKER) (test eiqz=746) 0 /100 WBC 0-0 NEUTROPHILS RELATIVE PERCENT (BEAKER) (test jkqs=711) 64 % LYMPHOCYTES RELATIVE PERCENT (BEAKER) (test ynag=019) 25 % MONOCYTES RELATIVE PERCENT (BEAKER) (test szrk=021) 7 % EOSINOPHILS RELATIVE PERCENT (BEAKER) (test ifkp=563) 3 % BASOPHILS RELATIVE PERCENT (BEAKER) (test hods=380) 1 % NEUTROPHILS ABSOLUTE COUNT (BEAKER) (test tyqe=902) 2.92 K/ L 1.80-8.00 LYMPHOCYTES ABSOLUTE COUNT (BEAKER) (test yefj=114) 1.16 K/ L 1.48-4.50 MONOCYTES ABSOLUTE COUNT (BEAKER) (test yaci=124) 0.33 K/ L 0.00-1.30 EOSINOPHILS ABSOLUTE COUNT (BEAKER) (test gize=937) 0.14 K/ L 0.00-0.50 BASOPHILS ABSOLUTE COUNT (BEAKER) (test eaxm=902) 0.03 K/ L 0.00-0.20 0.00B-TYPE NATRIURETIC FACTOR (BNP)2017-01-27 08:22:00* Test Item Value Reference Range Comments B-TYPE NATRIURETIC PEPTIDE (BEAKER) (test cfit=207) 219 pg/mL 0-100 LIPID [id number] 08:16:00* Test Item Value Reference Range Comments TRIGLYCERIDES (BEAKER) (test upvs=398) 99 mg/dL CHOLESTEROL (BEAKER) (test jyxc=003) 170 mg/dL HDL CHOLESTEROL (BEAKER) (test ibwm=792) 64 mg/dL LDL CHOLESTEROL CALCULATED (BEAKER) (test edzh=027) 86 mg/dL Triglyceride Reference Range: Low Risk <150 Borderline 150-199 High Risk 200-499 Very High Risk >=500Cholesterol Reference Range: Low Risk <200 Borderline 200-239 High Risk >240HDL Cholesterol Reference Range: Low Risk >=60 High Risk <40LDL Cholesterol Reference Range: Optimal <100 Near Optimal 100-129 Borderline 130-159 High 160-189 Very High >=190 BASIC METABOLIC [id number] 08:16:00* Test Item Value Reference Range Comments SODIUM (BEAKER) (test yexw=561) 137 meq/L 136-145 POTASSIUM (BEAKER) (test psmw=510) 3.8 meq/L 3.5-5.1 CHLORIDE (BEAKER) (test ttxp=037) 100 meq/L 98-107 CO2 (BEAKER) (test hoab=684) 31 meq/L 22-29 BLOOD UREA NITROGEN (BEAKER) (test adxn=614) 17 mg/dL 7-21 CREATININE (BEAKER) (test orsn=563) 0.96 mg/dL 0.57-1.25 GLUCOSE RANDOM (BEAKER) (test mdlu=991) 83 mg/dL 70-105 CALCIUM (BEAKER) (test zked=959) 9.2 mg/dL 8.4-10.2 EGFR (BEAKER) (test ciyx=3034) 56 mL/min/1.73 sq m ESTIMATED GFR IS NOT ACCURATE CREATININE CLEARANCE IN PREDICTING GLOMERULAR FILTRATION RATE. ESTIMATED GFR IS NOT APPLICABLE FOR DIALYSIS PATIENTS. HEPATIC FUNCTION [id number] 08:16:00* Test Item Value Reference Range Comments TOTAL PROTEIN (BEAKER) (test olor=545) 6.9 gm/dL 6.0-8.3 ALBUMIN (BEAKER) (test ousy=1643) 4.1 g/dL 3.5-5.0 BILIRUBIN TOTAL (BEAKER) (test srlt=471) 0.8 mg/dL 0.2-1.2 BILIRUBIN DIRECT (BEAKER) (test gzcq=335) 0.3 mg/dL 0.1-0.5 ALKALINE PHOSPHATASE (BEAKER) (test bgxe=921) 82 U/L 40-150 AST (SGOT) (BEAKER) (test gxej=049) 29 U/L 5-34 ALT (SGPT) (BEAKER) (test zyan=347) 18 U/L 6-55
[2019-02-04] MEDS ORDERED: ASPIRIN 81 MG CHEW TAB PO ONE (19:15)
[2019-02-04 19:35] LABS: BASOPHILS % 0.2 % (0.0-1.0); EOSINOPHILS % 0.2 % (0.0-6.0); HEMATOCRIT 37.7 % (34.2-44.1); HEMOGLOBIN 12.4 g/dL (12.0-16.0); LYMPHOCYTES # (AUTO) 0.4 (1.0-3.2); LYMPHOCYTES % 4.5 % (18.0-39.1); MEAN CORPUSCULAR HEMOGLOBIN 32.4 pg (28-32); MEAN CORPUSCULAR HGB CONC 32.9 g/dL (31-35); MEAN CORPUSCULAR VOLUME 98.4 fL (81-99); MONOCYTES # (AUTO) 0.4 (0.2-0.8); MONOCYTES % 4.3 % (4.4-11.3); NEUTROPHILS # (AUTO) 7.6 (2.1-6.9); NEUTROPHILS % 90.6 % (38.7-80.0); PLATELET COUNT 239 x10e3/uL (140-360); RED BLOOD COUNT 3.83 x10e6/uL (3.6-5.1)
[2019-02-04 19:37] LABS: INR 0.85; PROTHROMBIN TIME 12.1 seconds (11.9-14.5)
[2019-02-04 19:38] LABS: PARTIAL THROMBOPLASTIN TIME 28.5 seconds (23.8-35.5)
--- NOTE | 2019-02-04 19:49 | Diagnostic Imaging Report ---
EXAMINATION: CHEST SINGLE (PORTABLE) INDICATION: Chest tightness. COMPARISON: None FINDINGS: AP view TUBES and LINES: Median sternotomy wires. LUNGS: Lungs are well inflated. There are bibasilar atelectasis. There is no evidence of pneumonia or pulmonary edema. PLEURA: Likely small right pleural effusion. HEART AND MEDIASTINUM: Cardiac size is mildly enlarged. BONES AND SOFT TISSUES: No acute osseous lesion. Soft tissues are unremarkable. UPPER ABDOMEN: No free air under the diaphragm. IMPRESSION: Likely small right pleural effusion with associated bibasilar atelectasis. Superimposed infection in the right lung base cannot be excluded. Signed by: Dr. Austin Patel M.D. on 02/04/2019 7:46 PM
[2019-02-04 19:55] LABS: ALANINE AMINOTRANSFERASE 211 IU/L (0-55); ALBUMIN 3.8 g/dL (3.5-5.0); ALBUMIN/GLOBULIN RATIO 1.4 (0.8-2.0); ALKALINE PHOSPHATASE 181 IU/L (40-150); ANION GAP 14.1 mmol/L (8-16); BLOOD UREA NITROGEN 16 mg/dL (7-26); BUN/CREATININE RATIO 20 (6-25); CARBON DIOXIDE 27 mmol/L (22-29); CHLORIDE 95 mmol/L (98-107); CREATINE KINASE 55 IU/L (29-168); CREATININE, SERUM 0.79 mg/dL (0.57-1.11); EST GLOMERULAR FILTRATION RATE > 60 ML/MIN (60-); GLUCOSE 134 mg/dL (74-118); MAGNESIUM 2.1 MG/DL (1.3-2.1); POTASSIUM 4.1 mmol/L (3.5-5.1); SODIUM 132 mmol/L (136-145)
[2019-02-04 20:24] LABS: BILIRUBIN,URINE NEGATIVE (NEGATIVE); CLARITY,URINE CLOUDY (CLEAR); COLOR,URINE YELLOW (YELLOW); KETONES,URINE NEGATIVE (NEGATIVE); LEUKOCYTE ESTERASE ,URINE 1+ (NEGATIVE); NITRITE,URINE NEGATIVE (NEGATIVE); PROTEIN,URINE DIPSTICK NEGATIVE (NEGATIVE); URINE UROBILINOGEN 0.2 mg/dL (0.2 - 1)
[2019-02-04] MEDS ORDERED: METOPROLOL SUCC25 MG PO (20:33)
[2019-02-04] MEDS ORDERED: PANTOPRAZOLE SO40 MG PO (20:33)
[2019-02-04] MEDS ORDERED: FUROSEMIDE40 MG PO ×2 (20:33)
[2019-02-04] MEDS ORDERED: POTASSIUM CHLO20 ME1 PO (20:33)
[2019-02-04 20:36] LABS: BACTERIA,URINE MODERATE /HPF; EPITHELIAL CELLS,URINE FEW /LPF
[2019-02-04] MEDS ORDERED: ASPIR 8181 MG PO (20:42)
[2019-02-04] MEDS ORDERED: MONTELUKAST SOD10 MG PO (20:42)
[2019-02-04] MEDS ORDERED: VITAMIN B-121000 MCG PO (20:42)
[2019-02-04] MEDS ORDERED: GABAPENTIN100 MG PO (20:42)
[2019-02-04] MEDS ORDERED: ALPHAGAN P5 M1 OU (20:42)
[2019-02-04] MEDS ORDERED: SIMVASTATIN20 MG PO (20:42)
[2019-02-04] MEDS ORDERED: LEVOTHYROXINE25 MCG PO (20:42)
[2019-02-04] MEDS ORDERED: IBANDRONATE SO150 MG PO (20:42)
[2019-02-04] MEDS ORDERED: VITAMIN C500 M1 PO (20:42)
[2019-02-04] MEDS ORDERED: CLARITIN-D 241 EACH PO (20:42)
[2019-02-04] MEDS ORDERED: VENTOLIN HFA18 GM INH (20:42)
[2019-02-04] MEDS ORDERED: CALCIUM CARBON500 MG PO (20:42)
[2019-02-04] MEDS ORDERED: LUMIGAN2.5 M1 OS (20:42)
[2019-02-04] MEDS ORDERED: FERROUS SULFAT325 MG PO (20:42)
[2019-02-04] MEDS ORDERED: GAS-X125 MG PO (20:42)
[2019-02-04] MEDS ORDERED: ZETIA10 MG PO (20:42)
[2019-02-04] MEDS ORDERED: CEFTRIAXONE SOD 1 GM/NS 50 ML 50 ML IV SCH (21:15)
--- NOTE | 2019-02-04 22:34 | Diagnostic Imaging Report ---
EXAM: CTA Chest without and with WITH contrast 02/04/2019 7:32 PM INDICATION: Aortic dissection. Chest pain radiating to the back. COMPARISON: None TECHNIQUE: Chest was scanned utilizing a multidetector helical scanner from the lung apex through the level of the diaphragm after administration of IV contrast. Thin section reconstructions were obtained with special concentration on the pulmonary arteries. Coronal and sagittal reformations were obtained. Pulmonary embolism protocol was performed. 3-D rendering was also performed on a separate workstation. IV CONTRAST: 100 cc [id number] RADIATION DOSE: Total DLP: 348.51 mGy*cm Estimated effective dose: (DLP x 0.014 x size factor) mSv COMPLICATIONS: None FINDINGS: LINES/ TUBES: None. LUNGS AND AIRWAYS: No filling defect is identified within the pulmonary arteries to the segmental level. Biapical pleural-parenchymal scarring. There is a 8 mm noncalcified nodule in the right upper lobe anteriorly on sagittal image 53. There is a calcified granuloma in the left lung base. Bibasilar posterior atelectasis versus scarring. PLEURA: Small loculated pleural effusion with split pleura sign in the lower lateral posterior right hemithorax measuring 6.2 x 3.6 cm on image 57. Bilateral pleural thickening with calcified pleural plaques may reflect prior asbestos exposure. HEART AND MEDIASTINUM: The thyroid gland is normal. No mediastinal, hilar or axillary lymphadenopathy. The heart is normal in size.. There is no pericardial effusion. There are moderate atherosclerotic calcifications in the aorta and coronary arteries without aneurysmal dilatation. Marked calcification of the mitral valve. Aortic valve prosthesis. Main pulmonary artery measures 2.9 in diameter. UPPER ABDOMEN: Limited non-contrast views of the upper abdomen show abnormal appearance of the gallbladder which measures 5.3 cm in transverse dimension, only partially visualized. Moderate sized hiatal hernia. The adrenal glands are normal. BONES: Median sternotomy wires. Rotatory dextroscoliosis of the thoracic spine. T9 vertebral hemangioma. SOFT TISSUES: Unremarkable. IMPRESSION: 1. No aortic dissection as per clinical query. No pulmonary embolism to the resolved segmental level. 2. Findings suggestive of prior asbestos exposure. Loculated, chronic appearing pleural effusion with split pleura sign in the posterolateral inferior right hemithorax is nonspecific, however, an empyema could have this appearance in the proper clinical setting. 3. Coronary artery disease status post CABG. 4. Abnormal appearance of the gallbladder which is only partially visualized. Correlate for right upper quadrant pain, and if warranted, further evaluation with ultrasound of gallbladder. 5. 8 mm nodule in the right upper lobe. Follow-up CT chest nodule protocol in 3 months to evaluate stability or lack thereof. 6. Moderate size hiatal hernia. Signed by: Dr. Cristina Mendoza M.D. on 02/04/2019 10:30 PM
[2019-02-04 22:35] LABS: AMYLASE 42 U/L (25-125); LIPASE 26 U/L (8-78)
--- NOTE | 2019-02-04 22:57 | Diagnostic Imaging Report ---
EXAM: Gallbladder Ultrasound INDICATION: ELEVATED LFT'S, BACK PAIN COMPARISON: None. TECHNIQUE: Transverse and longitudinal images of the gallbladder were obtained. FINDINGS: Liver: 11.9 cm in length. Mildly coarsened echotexture diffusely. Gallbladder: Mildly hydropic measuring 7.5 x 3.3 x 5.2 cm. Stones/Sludge: Small calculi and sludge. Wall: 0.4 cm Appearance: No wall thickening, pericholecystic fluid or hydrops. Sonographic Galdamez's Sign: Deemed negative by technologist (was patient medicated?) Bile Ducts: Intrahepatic Ducts: No dilatation Extrahepatic Ducts: Common bile duct measures 0.2 cm, no dilatation Free Fluid: No ascites or pleural effusion IMPRESSION: Cholelithiasis, gallbladder sludge, mild gallbladder hydrops and wall thickening raise concern for acute calculus cholecystitis in the proper clinical setting. Signed by: Dr. Cristina Mendoza M.D. on 02/04/2019 10:54 PM
[2019-02-04] MEDS ORDERED: PIPER-TAZ 3.375 GM 50 ML IV SCH (23:45)
[2019-02-05] VITALS (8 sets, daily range): BP systolic 101–136; BP diastolic 51–68
[2019-02-05] MEDS: SODIUM CHLORIDE 0.9% 1000ML 1,000 ML IV SCH ×3 (00:01→16:45)
[2019-02-05] MEDS ORDERED: ONDANSETRON HCL INJ 2MG/ML 2ML 2 MG/ML VIAL IV PRN (00:15)
[2019-02-05] MEDS ORDERED: HYDROMORPHONE 2MG/ML 2 MG/ML ML IV PRN (00:15)
[2019-02-05] MEDS ORDERED: SODIUM CHLORIDE 0.9% 100 ML 100 ML ONE (00:16)
[2019-02-05] MEDS ORDERED: IOPAMIDOL 370 MG/ML 200 ML INFUS..BTL INJ ONE (00:17)
--- OUTSIDE RECORDS SUMMARY | 2019-02-05 00:20 | XMS REPORT | Clinical Summary ---
Author Author ETIENNE [employer] TechnologyB[facility] Address Unknown Phone Unavailable Care Team Providers Care Color Checker Roving Or Yarn Name Role Phone Checo Goldenpardeep PCP Allergies [...] Cyrus Berman MD 02/17/2018 Refill Cardiology after 02/04/2018 Family History Relation Name Status Comments Father [...] Taken Vital Sign Reading 10/27/2018 8:21 AM GLOBAL MANAGER Blood Pressure 149/72 10/27/2018 8:11 AM GLOBAL MANAGER Pulse 66 10/27/2018 8:11 AM GLOBAL MANAGER Temperature 35.9 C (96.6 F) 10/27/2018 8:11 AM GLOBAL MANAGER Respiratory Rate 18 10/27/2018 8:11 AM GLOBAL MANAGER Oxygen Saturation 100% - Inhaled Oxygen - Concentration 10/27/2018 8:11 AM GLOBAL MANAGER Weight 54.4 kg (120 lb) 10/27/2018 8:11 AM GLOBAL MANAGER Height 147.3 cm (4' 10") 10/27/2018 8:11 AM GLOBAL MANAGER Body Mass Index 25.08 Plan of Treatment Care Team Description Date Type Specialty Cyrus Berman MD [address] [facility] [address] [place], [place] [id number] 03/02/2019 Office Visit Cardiology Health Maintenance Due Date Last Done Comments INFLUENZA VACCINE 08/24/2018 Procedures Comments Procedure Name Priority Date/Time Associated Diagnosis ECG 12-LEAD Routine 10/27/2018 9:15 AM GLOBAL MANAGER Procedure Note - Interface, External Ris In - 10/27/2018 10:23 AM GLOBAL MANAGER Ventricula r Rate 67 BPM Atrial Rate 67 BPM P-R Interval 134 ms QRS Duration 80 ms Q-T Interval 442 ms QTC Calculatio n(Bazett) 467 ms P [place] 29 degrees R [place] 21 degrees T [place] 61 degrees Sinus rhythm with marked sinus arrhythmia Otherwise normal ECG When compared with ECG of 8 08:03, No significan t change was found ECG 12-LEAD Routine 10/27/2018 Essential hypertension 9:15 AM GLOBAL MANAGER with goal blood pressure less than 140/90 Supraventricular tachycardia (HCC) CBC W/PLT COUNT & AUTO Routine 10/27/2018 Supraventricular DIFFERENTIAL 8:16 AM GLOBAL MANAGER tachycardia (HCC) B-TYPE NATRIURETIC FACTOR Routine 10/27/2018 Essential hypertension (BNP) 8:16 AM GLOBAL MANAGER with goal blood pressure less than 140/90 Supraventricular tachycardia (HCC) TSH Routine 10/27/2018 Essential hypertension 8:16 AM GLOBAL MANAGER with goal blood pressure less than 140/90 Supraventricular tachycardia (HCC) HEPATIC FUNCTION PANEL Routine 10/27/2018 Essential hypertension 8:16 AM GLOBAL MANAGER with goal blood pressure less than 140/90 Supraventricular tachycardia (HCC) Other hyperlipidemia LIPID PANEL Routine 10/27/2018 Essential hypertension 8:16 AM GLOBAL MANAGER with goal blood pressure less than 140/90 Supraventricular tachycardia (HCC) Other hyperlipidemia CBC W/PLT COUNT & AUTO Routine 10/27/2018 Supraventricular DIFFERENTIAL 8:16 AM GLOBAL MANAGER tachycardia (HCC) BASIC METABOLIC PANEL (7) Routine 10/27/2018 Other hyperlipidemia 8:16 AM GLOBAL MANAGER CBC W/PLT COUNT & AUTO Routine 05/29/2018 [...] ms QTC Calculatio n(Bazett) 438 ms P [place] 6 degrees R [place] 18 degrees T [place] 45 degrees Sinus bradycardi a Otherwise normal ECG When compared with ECG of 8 08:55, No significan t change was found after 02/04/2018 Results * ECG 12 lead (10/27/2018 9:15 AM GLOBAL MANAGER) Only the most recent of 2 results within the time period is included. Narrative Performed At Ventricular Rate 67 BPM GE MUSE Atrial Rate 67 BPM P-R Interval 134 ms QRS Duration 80 ms Q-T Interval 442 ms QTC Calculation(Bazett) 467 ms P [place] 29 degrees R [place] 21 degrees T [place] 61 degrees Sinus rhythm Atrial premature beats Nonspecific ST and T wave abnormality Otherwise normal ECG When compared with ECG of 29-MAY-2018 08:03, No significant change was found Confirmed by MD BERMAN JAMES T ([id number]) on 10/28/2018 2:00:04 PM Procedure Note Interface, External Ris In - 10/28/2018 2:00 PM GLOBAL MANAGER Ventricular Rate 67 BPM Atrial Rate 67 BPM P-R Interval 134 ms QRS Duration 80 ms Q-T Interval 442 ms QTC Calculation(Bazett) 467 ms P [place] 29 degrees R [place] 21 degrees T [place] 61 degrees Sinus rhythm Atrial premature beats Nonspecific ST and T wave abnormality Otherwise normal ECG When compared with ECG of 29-MAY-2018 08:03, No significant change was found Confirmed by MD BERMAN JAMES T ([id number]) on 10/28/2018 2:00:04 PM Performing Organization Address City/State/Zipcode Phone Number GE M[facility] * CBC with platelet count + automated diff (10/27/2018 8:16 AM GLOBAL MANAGER) Only the most recent of 2 results within the time period is included. WBC 5.3 3.5 - 10.5 K/L [facility] RBC 3.69 (L) 3.93 - 5.22 M/L [facility] Hemoglobin 11.9 11.2 - 15.7 GM/DL [facility] Hematocrit 37.2 34.1 - 44.9 % [facility] MCV 100.8 (H) 79.4 - 94.8 fL [facility] MCH 32.2 25.6 - 32.2 pg [facility] MCHC 32.0 (L) 32.2 - 35.5 GM/DL [facility] RDW 12.1 11.7 - 14.4 % [facility] Platelets 308 150 - 450 K/CU MM [facility] MPV 9.0 (L) 9.4 - 12.3 fL [facility] nRBC 0 0 - 0 /100 WBC [facility] % Neutros 68 % [facility] % Lymphs 19 % [facility] % Monos 9 % [facility] % Eos 3 % [facility] % Baso 1 % [facility] # Neutros 3.60 1.56 - 6.13 K/L [facility] # Lymphs 0.98 (L) 1.18 - 3.74 K/L [facility] # Monos 0.47 (H) 0.24 - 0.36 K/L [facility] # Eos 0.18 0.04 - 0.36 K/L [facility] # Baso 0.05 0.01 - 0.08 K/L [facility] Immature 0 0 - 1 % [facility] Granulocytes-Relative [facility] Specimen Blood Performing Organization Address City/[facility]/[place] [address] [phone] * TSH (10/27/2018 8:16 AM GLOBAL MANAGER) Only the most recent of 2 results within the time period is included. TSH 3.16 0.35 - 4.94 uIU/mL [facility] Specimen Blood Performing Organization Address City/[facility] Phone Number [place] [phone] * B-type Natriuretic Factor (BNP) (10/27/2018 8:16 AM GLOBAL MANAGER) Only the most recent of 2 results within the time period is included. BNP 364 (H) 0 - 100 pg/mL [facility] Specimen Blood Performing Organization Address City/[facility] Phone Number [address] * Liver Function Panel (10/27/2018 8:16 AM GLOBAL MANAGER) Only the most recent of 2 results within the time period is included. Protein, Total 7.0 6.0 - 8.3 gm/dL [facility] Albumin 4.1 3.5 - 5.0 g/dL [facility] Total Bilirubin 0.7 0.2 - 1.2 mg/dL [facility] Bilirubin, Direct 0.4 0.1 - 0.5 mg/dL [facility] Alkaline Phosphatase 185 (H) 40 - 150 U/L [facility] AST 29 5 - 34 U/L [facility] ALT 27 6 - 55 U/L [facility] Specimen Blood Performing Organization Address City/[facility] Phone Number [facility] [address] [place] [address] [facility] * Lipid Panel (10/27/2018 8:16 AM GLOBAL MANAGER) Only the most recent of 2 results within the time period is included. Triglycerides 83 mg/dL [facility] Cholesterol 155 mg/dL [facility] HDL 62 mg/dL [facility] LDL Calculated 76 mg/dL [facility] Specimen Blood Narrative Performed At Triglyceride Reference Range: [facility] Low Risk <150 [facility] [id number] High Risk 200-499 Very High Risk>=500 Cholesterol Reference Range: Low Risk <200 [id number] High Risk>240 HDL Cholesterol Reference Range: Low Risk >=60 High Risk <40 LDL Cholesterol Reference Range: Optimal<100 Near [id number] Very High >=190 Performing Organization Address City/[facility] Phone Number [facility] [address] [place] [address] [facility] * Basic Metabolic Panel (10/27/2018 8:16 AM GLOBAL MANAGER) Only the most recent of 2 results within the time period is included. Sodium 138 136 - 145 meq/L [facility] Potassium 3.6 3.5 - 5.1 meq/L [facility] Chloride 100 98 - 107 meq/L [facility] CO2 32 (H) 22 - 29 meq/L [facility] BUN 15 7 - 21 mg/dL [facility] Creatinine 0.79 0.57 - 1.25 mg/dL [facility] Glucose 91 70 - 105 mg/dL [facility] Calcium 9.4 8.4 - 10.2 mg/dL [facility] EGFR 70Comment: ESTIMATED GFR IS mL/min/1.73 sq m [facility] NOT ACCURATE CREATININE [facility] CLEARANCE IN PREDICTING GLOMERULAR FILTRATION RATE. ESTIMATED GFR IS NOT APPLICABLE FOR DIALYSIS PATIENTS. Specimen Blood Performing Organization Address City/State/Zipcode Phone Number [facility] [address] [place] [address] [facility] * Comprehensive Metabolic Panel (05/29/2018 8:04 AM CDT) Protein, Total 6.5 6.0 - 8.3 gm/dL [facility] Albumin 3.9 3.5 - 5.0 g/dL [facility] Alkaline Phosphatase 77 40 - 150 U/L [facility] Total Bilirubin 0.8 0.2 - 1.2 mg/dL [facility] Sodium 136 136 - 145 meq/L [facility] Potassium 4.1 3.5 - 5.1 meq/L [facility] Chloride 99 98 - 107 meq/L [facility] CO2 32 (H) 22 - 29 meq/L [facility] BUN 15 7 - 21 mg/dL [facility] Creatinine 0.90 0.57 - 1.25 mg/dL [facility] Glucose 92 70 - 105 mg/dL [facility] Calcium 9.4 8.4 - 10.2 mg/dL [facility] AST 23 5 - 34 U/L [facility] ALT 15 6 - 55 U/L [facility] EGFR 60Comment: ESTIMATED GFR IS mL/min/1.73 sq m [facility] NOT ACCURATE CREATININE [facility] CLEARANCE IN PREDICTING GLOMERULAR FILTRATION RATE. ESTIMATED GFR IS NOT APPLICABLE FOR DIALYSIS PATIENTS. Specimen Blood Performing Organization Address City/State/Zipcode Phone Number [facility] [address] [place] [address] [facility] after 02/04/2018 Insurance Payer Benefit Subscriber ID Type Phone Address Plan / Group MEDICARE MEDICARE A xxxxxxxxxxx Medicare B MCR SUPPLEMENT/INDIVIDUAL AARP/UNITE xxxxxxxxxxx [facility]
--- NOTE | 2019-02-05 00:24 | NUR ---
REPORT RECEIVED FROM CHANDANA IN ER,VERBALIZED THAT ALL CONSULTS(DR CUTLER,DR Blake GUZMAN,DR Julianne LERNER) HAVE ALREADY BEEN CALLED.
[2019-02-05] MEDS: ALBUTEROL/IPRATROPIUM 3 ML NEB NEB SCH ×5 (03:20→19:25)
[2019-02-05 03:41] LABS: CREATINE KINASE MB 1.1 ng/mL (0-5.0)
--- NOTE | 2019-02-05 03:50 | NUR ---
DR Julianne LERNER IN UNIT.NOTIFIED ABOUT THE CONSULT.
[2019-02-05] MEDS ORDERED: LEVOTHYROXINE SODIUM 25 MCG TABLET PO SCH (06:00)
--- NOTE | 2019-02-05 07:21 | NUR ---
ISABELLE AND SPOKE TO DR CUTLER REGARDING CONSULT.DR CUTLER STATED THAT HE WILL BE COMING TO SEE PT THIS MORNING BETWEEN 8-9
--- NOTE | 2019-02-05 07:23 | NUR ---
SPOKE TO NILS IN RADIOLOGY TO FOLLOW UP WITH MRCP ORDER,STATED THAT THE FORGER HELPER IS NOT HERE YET AND THAT HE WILL LET THE FORGER HELPER KNOW WHEN THEY GET HERE AROUND 8 AM.
--- NOTE | 2019-02-05 07:23 | NUR ---
REPORT GIVEN TO ONCOMING NURSE.PT RESTING IN BED WITH NO S/S OF DISTRESS.
[2019-02-05 07:29] LABS: BASOPHILS % 0.5 % (0.0-1.0); EOSINOPHILS % 0.3 % (0.0-6.0); HEMOGLOBIN 10.5 g/dL (12.0-16.0); LYMPHOCYTES # (AUTO) 0.6 (1.0-3.2); LYMPHOCYTES % 10.4 % (18.0-39.1); MEAN CORPUSCULAR HEMOGLOBIN 32.9 pg (28-32); MEAN CORPUSCULAR HGB CONC 33.9 g/dL (31-35); MEAN CORPUSCULAR VOLUME 97.2 fL (81-99); MONOCYTES # (AUTO) 0.4 (0.2-0.8); MONOCYTES % 6.3 % (4.4-11.3); NEUTROPHILS % 82.2 % (38.7-80.0); PLATELET COUNT 205 x10e3/uL (140-360); RED BLOOD COUNT 3.19 x10e6/uL (3.6-5.1); RED CELL DISTRIBUTION WIDTH 12.3 % (11.7-14.4)
[2019-02-05 07:50] LABS: ALANINE AMINOTRANSFERASE 219 IU/L (0-55); ALBUMIN 2.7 g/dL (3.5-5.0); ALBUMIN/GLOBULIN RATIO 1.1 (0.8-2.0); ALKALINE PHOSPHATASE 145 IU/L (40-150); ANION GAP 10.4 mmol/L (8-16); BLOOD UREA NITROGEN 13 mg/dL (7-26); BUN/CREATININE RATIO 16 (6-25); CALCIUM 7.9 mg/dL (8.4-10.2); CARBON DIOXIDE 26 mmol/L (22-29); CHLORIDE 102 mmol/L (98-107); EST GLOMERULAR FILTRATION RATE > 60 ML/MIN (60-); GLUCOSE 86 mg/dL (74-118); POTASSIUM 3.4 mmol/L (3.5-5.1); SODIUM 135 mmol/L (136-145)
[2019-02-05] MEDS ORDERED: PANTOPRAZOLE 40 MG 10ML VIAL IV SCH (09:00)
[2019-02-05] MEDS ORDERED: BRIMONIDINE TARTRATE (OPTH) 5 ML LIQD OP SCH (09:00)
[2019-02-05] MEDS: GABAPENTIN 100 MG CAP PO SCH ×2 (09:00→16:44)
[2019-02-05] MEDS: METOPROLOL SUCCINATE 25 MG TAB XL PO SCH ×2 (09:00→16:45)
[2019-02-05] MEDS: PIPER-TAZ 3.375 GM 50 ML IV SCH ×2 (10:00→16:44)
--- NOTE | 2019-02-05 11:06 | Diagnostic Imaging Report ---
EXAM: MRI MRCP WO DATE: 02/05/2019 12:01 AM INDICATION: Gallstones without obstruction. COMPARISON: Right upper quadrant ultrasound dated 02/04/2019 TECHNIQUE: MRCP protocol performed using1.5 Akiko. Sequences obtained include axial T2 FRFSE FS, coronal and axial T2 SSFSE, SSFSE coronal spins. FINDINGS: Lower thorax: Cardiomegaly. Partially seen median sternotomy wires. Small loculated right pleural effusion. No T2 hyperintense hepatic lesion. Full evaluation is limited without intravenous contrast. Hydropic gallbladder. There is small amount of pericholecystic fluid. Small dependent gallstones are seen in the fundus and body. Common bile duct is distended up to 0.9 cm. There are multiple filling defects within distal common bile duct, measuring up to 0.5 cm (series 11, images 17 and 16). Spleen, pancreas, and kidneys are grossly unremarkable. Left renal inferior pole cyst. Nonspecific bilateral perinephric mild edema. Adrenal glands are not clearly visualized, limiting evaluation. Visualized bowel loops are unremarkable. No evidence of bowel obstruction. Moderate size hiatal hernia. Severe thoracolumbar scoliosis with multilevel advanced degenerative changes. IMPRESSION: Hydropic gallbladder containing small gallstones and small amount of pericholecystic fluid. Choledocholithiasis and resultant mild common bile duct distention. Loculated right pleural effusion. Moderate size hiatal hernia. Signed by: Dr. Erick Stoner MD on 02/05/2019 11:02 AM
[2019-02-05 11:42] LABS: CREATINE KINASE MB 1.2 ng/mL (0-5.0)
--- NOTE | 2019-02-05 12:20 | Consultation ---
DATE OF CONSULTATION: Surgical Consultation REASON FOR CONSULTATION: Cholelithiasis with abnormal liver chemistries. HISTORY OF PRESENT ILLNESS: The patient is a pleasant 83-year-old female, admitted through the emergency room complaining of severe retrosternal chest pain radiating to the back. In the emergency room, it was felt that because of the clinical presentation, she was having aortic dissection and CTA of the chest revealed no evidence of dissection. She had an abnormal gallbladder and because of this, she underwent an abdominal ultrasound that revealed gallstones with gallbladder wall thickening and hydrops of the gallbladder consistent with cholecystitis. The patient was admitted, given antibiotics, kept n.p.o. At this point, she is totally pain free. Vital signs are stable. PAST MEDICAL HISTORY: The patient has a significant past medical history. She has a history of congestive heart failure. She has a history of cardiac arrhythmia. She has a history of cardiomegaly. She has a history of cardiac ablation. In addition to that, the patient has a history of severe COPD with scoliosis. The COPD is secondary to secondhand smoke inhalation, both parents were heavy smokers. She also has a history of arthritis and has difficulty walking. PAST SURGICAL HISTORY: Include vaginal hysterectomy. MEDICATIONS: She has a list which is quite extensive. She is taking aspirin, but she denies any anticoagulants. REVIEW OF SYSTEMS: Significant for what has been stated. Currently, [facility] She has a check grader. She has a Pulmonary doctor. She also has critical care unit manager, who follows her because she has a history of abnormal liver chemistries in the past. PHYSICAL EXAMINATION: GENERAL: An 83-year-old female, who is short of breath at rest. VITAL SIGNS: She is afebrile. Blood pressure 101/51 and pulse is 71. HEAD: No acute process. NECK: Supple. LUNGS: Diminished breath sounds bilaterally. HEART: Significant easily auscultated murmur, which appears to be systolic. ABDOMEN: Soft, absolutely nontender. BACK: Deformity. EXTREMITIES: No clubbing, cyanosis, or edema. LABORATORY DATA: White count of 6, hematocrit was 31, and platelet count of 205. The admission chemistries reveal a bilirubin of 1.9, AST 340, ALT 211, creatine phosphatase 181. PT is 12, PTT 28.5, and INR 0.8. The admission urine reveals 1+ leukocyte esterase. IMAGING DATA: CTA has already been described. The chest x-ray reveals small right pleural effusion with associated bilateral atelectasis, possible infection. Gallbladder ultrasound reveals cholelithiasis, gallbladder sludge, mild gallbladder hydrops and wall thickening concerning for acute cholecystitis. ASSESSMENT AND PLAN: An 83-year-old female with a significant past medical history, which includes significant cardiac history as well as significant chronic obstructive pulmonary disease with shortness of breath and a history of liver chemistries abnormality in the past. Currently, [facility] At this point, there is no surgical emergency. I think this lady needs to be thoroughly worked up. I have ordered an MRCP to rule out the possibility of a choledocholithiasis. Currently, she is awaiting cardiac evaluation as well as GI evaluation. I have also ordered HIDA scan. Once the workup is completed, then further surgical recommendations will be rendered. Thank you very much for this consultation. MD EMMANUEL Weller/STEFFI /[phone]
[2019-02-05] MEDS ORDERED: MORPHINE SULFATE INJ 4 MG/ML INJ 1ML ONE (12:39)
--- NOTE | 2019-02-05 15:20 | NUR ---
CM SPOKE TO ELADIO, RN (BEDSIDE NURSE) REGARDING PATIENT DISCHARGE PLAN. PER DR. Jeffrey GUZMAN PATIENT TO TRANSFER [facility] OF CARE FOR CONTINUITY OF CARE. PATIENT AWARE AND VERBALLY AGREES TO TRANSFER. CM CURRENTLY IN MEETING AND TRANSFER INITIATION ESCALATED TO LIUDMILA, BIODIESEL PRODUCT MANAGER. CM FOLLOWED UP WITH LIUDMILA AFTER MEETING. LIUDMILA INITIATED TRANSFER AND INITIATED MOT. DR. LUGO FACILITATING DOCTOR OVER TRANSFER. WEEKEND CM TO FOLLOW UP IF PATIENT IN HOUSE TOMORROW.
--- NOTE | 2019-02-05 16:00 | NUR ---
Dr. Melendez came to talk to patient, to give her the option of going to [facility] for procedure where she usually goes or staying here to proceed with procedure here. Pt states she would prefer to be transferred to [facility]. Dr. Everett is aware of transfer. supervisor incising and case management have been notified.
--- NOTE | 2019-02-05 16:18 | NUR ---
Nutrition Screen Note RD Recommendation for Physician: -Rec advancing to cardiac diet as medically appropriate Plan of Care: RD following, monitoring for tolerance and adequacy Nutrition reason for involvement: Nutrition Risk Trigger MST Primary Diagnose(s): acute cholecystitis PMH: CHF, cardiac arrhythmia, cardiomegaly, cardiac ablation, COPD with scoliosis, arthritis Ht: 58in Wt: 114lb BMI: 23.8kg/m2 IBW: 90lb RD Assessment: (02/05) Chart reviewed. Labs and meds reviewed. 83yo F, who was admitted for chest pain. Gallbladder US concerning for acute cholecystitis. No surgical emergency at this time. Visited pt in the room. Pt reported decreased appetite for several days OSTEOPATHIC RESIDENT. No weight loss suspected as pt reported UBW ~114 116lb. No GI complains noted. LBM 02/04. Pt denied any chewing or swallowing difficulty. Pt was lying comfortably on bed and reading a book. Currently NPO. Pt is not interested in any oral nutrition supplements when diet is advanced. Discussed menu options with pt. Will continue to monitor and follow. Current Diet: NPO Malnutrition Evaluation (02/05) The patient does not meet criteria for a specified degree of malnutrition at this time. Will re-evaluate at follow-up as appropriate. Diet Education Needs Assessment: Diet education not indicated. Nutrition Care Level: low Signed: Estrellita Martínez, MS, RD, LD
--- NOTE | 2019-02-05 16:22 | Diagnostic Imaging Report ---
EXAM: HIDA Scan with Morphine Challenge INDICATION: Abdominal pain; cholelithiasis Report: Following the administration of 5.9 mCi of Tc-99m mebrofenin, dynamic images of the abdomen in the anterior projection were obtained through 60 minutes. Morphine sulfate 2 mg was administered intravenously and additional images were obtained through 30 minutes. Perfusion of the liver is normal. Extraction of tracer from the blood pool by the liver parenchyma is normal. Tracer appears promptly with in the biliary tract. Tracer is seen in the small bowel by 40 minutes post injection of the tracer. The gallbladder does not fill during the initial 60 minutes of imaging but does fill promptly following administration of morphine. Impression: Filling of the gallbladder excludes acute cystic duct obstruction/acute cholecystitis. Signed by: Dr. Milagro Hanks M.D. on 02/05/2019 4:19 PM
--- NOTE | 2019-02-05 19:20 | NUR ---
Report taken from previous nurse. Patient in no pain or distress. call light within reach. Patient lying in bed.
[2019-02-05] MEDS ORDERED: MONTELUKAST SODIUM 10 MG TAB PO SCH (21:00)
[2019-02-05] MEDS ORDERED: BIMATOPROST(OPTH) 2.5 ML BOTTLE OP SCH (21:00)
--- NOTE | 2019-02-05 21:08 | NUR ---
Report given to Deng at [facility]. Patient being transferred to 110. Patient in no pain or distress. Call light within reach. patient's daughter, Lluvia was called and notified about patient being transferred.
--- NOTE | 2019-02-05 22:39 | NUR ---
Ambulance arrived and report and papers given. Patient in no pain or distress. Patient left via wheelchair
--- NOTE | 2019-02-06 23:52 | Consultation ---
DATE OF CONSULTATION: 02/05/2019 Cardiology Consultation REASON FOR CONSULTATION: Preoperative cardiac clearance. HISTORY OF PRESENT ILLNESS: Ms. Álvarez is an 83-year-old, patient of Dr. Patel, who has hypertension, hypertensive heart disease along with aortic valve replacement. She is admitted for abdominal pain, [facility] and possible abdominal surgery. I have been asked to assess for her cardiac risk. Echocardiogram shows a well-functioning bioprosthetic aortic valve and preserved ejection fraction. PAST MEDICAL HISTORY: As listed above. SOCIAL HISTORY: The patient does not smoke or drink. She is accompanied by her children. FAMILY HISTORY: Noncontributory. REVIEW OF SYSTEMS: Negative, except as dictated in the history of present illness. PHYSICAL EXAMINATION: VITAL SIGNS: Afebrile, heart rate 72, blood pressure is 135/68, and O2 sat is 99%. CARDIOVASCULAR: Regular rhythm, 3/6 systolic murmur. No gallops. LUNGS: Clear to auscultation bilaterally. IMAGING STUDIES: Electrocardiogram and echocardiogram were personally reviewed and discussed with the patient and the family. ASSESSMENT: Aortic valve replacement with normal function. RECOMMENDATION: The patient is cleared from the cardiac standpoint for noncardiac surgery with average risk for adverse outcomes. At this point, she is on a beta-elizabet and should be continued. I thank Dr. Cai for this consultation. MD SHARIF Mccarty/MODL /[id number]
== END 2019-02-05 22:45 | disposition short-term general hospital (02) | DRG 445 ==
LOC: ER 18:08 → ERHOLD 02-05 00:17 → MED/SURG2 02-05 00:34
DX: K80.01 Calculus of gallbladder with acute cholecystitis with obstruction (principal); K82.1 Hydrops of gallbladder; M54.89 Other dorsalgia; Z79.01 Long term (current) use of anticoagulants; Z95.2 Presence of prosthetic heart valve; I11.0 Hypertensive heart disease with heart failure; I50.9 Heart failure, unspecified; J44.9 Chronic obstructive pulmonary disease, unspecified; M41.9 Scoliosis, unspecified; M19.90 Unspecified osteoarthritis, unspecified site; R26.2 Difficulty in walking, not elsewhere classified
CPT/HCPCS: 36415; 71045; 71275; 74181; 76705; 78227; 80053; 81001; 82150; 82550; 82553; 83690; 83735; 83880; 84484; 85025; 85610; 85730; 93005; 93306; 94640; 99284; A9537; J0696; J2270; J2543; J7030; Q9967